=== PATIENT | female | born 1995 | race Hispanic/Latino ===

== ENCOUNTER 2018-02-15 21:29 | Emergency (ER) | payer OTHER, MEDICAID, SELFPAY ==
[2018-02-15 21:37] VITALS: BP 103/70; PULSE 59; RESP 16; TEMP 36.5; O2SAT 98; BMI 29.2
--- NOTE | 2018-02-15 22:21 | PC.NURSE ---
Pt reports R flank pain onset last night with chills today. -n/v or fever. Similar pain in the past with kidney infection. Pt reports odorous urine, burning but no freq or vag d/c or open sores to perineum/labia.
[2018-02-15 23:04] LABS: Add Manual Diff / Slide Review NO; Basophils Percent Auto 0.9 % (0-2); Eosinophils Percent Auto 1.8 % (2-4); Hematocrit 36.6 % (36-46); Hemoglobin 12.3 g/dL (12.0-16.0); Lymphocytes Percent Auto 46.1 % (25-40); Mean Corpuscular HGB Conc 33.7 % (30-36); Mean Corpuscular Hemoglobin 30.1 PG (26-34); Mean Corpuscular Volume 89.4 fL (80-100); Monocytes Percent Auto 8.9 % (3-14); Neutrophils Absolute Auto 3200 /uL (3000-5900); Neutrophils Percent Auto 42.3 % (50-75); Platelet Count 188 X10^3/uL (150-400); Red Blood Cell Count 4.09 X10^6/uL (4.0-5.2); Red Cell Distribution Width 13.5 % (11.6-14.8); White Blood Cell Count 7.5 X10^3/uL (4.5-11.0)
[2018-02-15 23:14] LABS: Alanine Aminotransferase 20 IU/L (9-52); Albumin 4.2 g/dL (3.5-5.0); Albumin Globulin Ratio 1.4 (1.0-2.8); Alkaline Phosphatase 54 U/L (38-126); Aspartate Aminotransferase 16 IU/L (14-36); BUN Creatinine Ratio 18.8 (6-22); Bilirubin Total 0.2 mg/dL (0.2-1.3); Blood Urea Nitrogen 15 mg/dL (7-17); Carbon Dioxide 23 mmol/L (22-32); Chloride 107 mmol/L (98-107); Estimated Glomerular Filt Rate > 60.0 mL/min (>60); Glucose 109 mg/dL (70-100); HEMOLYSIS < 15 (0-50); Lipase 142 U/L (23-300); Potassium 4.2 mmol/L (3.4-5.1); Sodium 143 mmol/L (137-145); Total Protein 7.2 g/dL (6.3-8.2)
--- NOTE | 2018-02-15 23:43 | PC.NURSE ---
stand by assisted provided for MD during pelvic exam. Pt tolerated well and obtained two vaginal cultures and sent out to lab.
--- NOTE | 2018-02-16 01:01 | ED_ITS ---
HPI - Female Genitourinary General Chief complaint: Urogenital-Female Stated complaint: RT SIDE BACK PAIN History of Present Illness HPI Narrative: HPI 22-year-old female presents for evaluation of 2 weeks of poorly characterized right flank pain that is nonradiating dull in nature, pain appears to be exacerbated by walking, patient also has mild right lower quadrant discomfort that is nonradiating, has been present for ~1 week, notes scant whitish vaginal discharge, mild vaginal discover, the concern for a mild bump by her mons pubis that is been present for an indeterminate period of time. Patient reports that she saw a a provider, possibly Sandie Granda, who prescribed unknown antibiotic for approximately 10 days duration that she took without improvement in symptoms. Patient denies fevers, chills, continues to take p.o. well, pass flatus and stool baseline, denies dysuria or urinary frequency. M/S/F/SocHx notable for: please see HPI; remainder reviewed with patient and in chart. ROS: Negative constitutional, eye, cardiovascular, pulmonary, GI, , MSK, skin , neurologic, psychiatric, endocrine unless noted in the HPI. Exam Gen: Pleasant, non-toxic appearing, resting comfortably. HEENT: NC, AT, PEERL, EOMI. Resp: Clear to auscultation bilaterally, normal work of breathing, no accessory muscle usage. Card: Regular rate and rhythm with no murmurs, rubs, or gallops, extremities warm and well perfused. GI: Non-tender to palpation throughout all quadrants, no focal tenderness at McBurney's point, negative Gonzalez's sign, non-distended, no rebound or guarding. : mild suprapubic tenderness to palpation. No CVA tenderness percussion bilaterally. Chaperoned pelvic exam with visually normal female external genitalia, and the men mons pubis there is a small area of mild induration/ swelling at the base of a hair. No surrounding erythema, fluctuance, crepitus, no discharge.. Vaginal canal without lesions or excoriations. Scant physiologic discharge appreciated, no bleeding or purulence. No masses or on bimanual exam of the fundus or left or right adnexa, however there is diffuse tenderness to palpation.No CMT. MSK: No visible deformities, strength and tone without visually appreciable deficit. Skin: Normal color with no visible lesions. Neuro: AO x 3, no facial asymmetry, vision and hearing WNL. Psych: Mood and affect appropriate. Labs / Imaging: WBC 7.5, HB 12.3, sodium 143, potassium 4.2, total bilirubin 0.2, AST 60, ALT 20 , ALT 54, lipase 142. UA - negative nitrate, negative leukocyte esterase. Negative hCG Wet mount - occasional clue cells, occasional yeast, no trichomonas GC Pending. MDM Previous chart, nursing note, labs, imaging, and vitals reviewed. A: 22-year-old female presents for evaluation of 2 weeks of poorly characterized right flank pain that is nonradiating dull in nature, pain appears to be exacerbated by walking, patient also has mild right lower quadrant discomfort that is nonradiating, has been present for ~1 week, notes scant whitish vaginal discharge, mild vaginal discover, the concern for a mild bump by her mons pubis that is been present for an indeterminate period of time. DDx: UTI, pyelonephritis, Jaya Sheldon Aram syndrome, lobar nephronia, ureterolithiasis, renal abscess, biliary disease (cholecystitis, cholelithiasis , choledocholithiasis, cholangitis), pancreatitis, , ectopic , PID, cervicitis, bacterial vaginosis, acute appendicitis. Evaluation: UA without clear evidence of UTI or UTI, history, exam, labs without clear evidence of ureterolithiasis, given the overall symptom constellation and history strongly doubt a lobar nephronia or renal abscess, examine labs without evidence of biliary disease, no evidence of pancreatitis, negative test, pelvic exam concerning for PID, wet mount with bacterial vaginosis. Evaluation of any possible Fizt Sheldon Aram syndrome deferred to the patient's PCP is appropriate. As GC is pending patient given ceftriaxone 250 mg IM, discharge with RX for doxycycline 100 mg b.i.d. and metronidazole 500 mg b.i.d.; both for 14 days. Patient instructed to follow up PCP for further care. Impression: BV, ?PID (please reference below for remainder of encounter information) Related Data Allergies Allergy/AdvReac Type Severity Reaction Status Date / Time No Known Drug Allergies Allergy Verified 02/15/18 21:37 [facility] Social History Smoking Status: Never smoker Exam Initial Vital Signs Initial Vital Signs: Vital Signs Temperature 97.7 F 02/15/18 21:37 Pulse Rate 59 L 02/15/18 21:37 Respiratory Rate 16 02/15/18 21:37 Blood Pressure 103/70 02/15/18 21:37 Pulse Oximetry 98 02/15/18 21:37 Course Orders Ordered: ED Orders 02/15/18 22:50 Complete Blood Count AUTO DIFF Stat Comprehensive Metabolic Panel Stat Lipase Stat 02/15/18 23:40 Wet Prep Tric BV Margaret Stat 02/16/18 00:01 Chlamydia/Gonorrhea RNA (SWAB) Stat Ceftriaxone Sodium (Rocephin) 250 mg IM NOW ONE Stop: 02/16/18 01:01 Doxycycline Hyclate (Vibramycin) 100 mg PO NOW ONE Stop: 02/16/18 01:01 Metronidazole (Metronidazole) 500 mg PO NOW ONE Stop: 02/16/18 01:01 Vital Signs - 8 hr 02/15/18 21:37 Temperature 97.7 F Pulse Rate 59 L Respiratory Rate 16 Blood Pressure 103/70 Pulse Oximetry 98 MDM - Female Genitourinary Lab Data Result diagrams: 02/15/18 22:50 02/15/18 22:50 Lab Results 02/15/18 02/15/18 Range/Units 22:50 22:50 WBC 7.5 (4.5-11.0) X10^3/uL RBC 4.09 (4.0-5.2) X10^6/uL Hgb 12.3 (12.0-16.0) g/dL Hct 36.6 (36-46) % MCV 89.4 (80-100) fL MCH 30.1 (26-34) PG MCHC 33.7 (30-36) % RDW 13.5 (11.6-14.8) % Plt Count 188 (150-400) X10^3/uL Neut % (Auto) 42.3 L (50-75) % Lymph % (Auto) 46.1 H (25-40) % Weld % (Auto) 8.9 (3-14) % Eos % (Auto) 1.8 L (2-4) % Baso % (Auto) 0.9 (0-2) % Neut # (Auto) 3200 (9994-5247) /uL Sodium 143 (137-145) mmol/L Potassium 4.2 (3.4-5.1) mmol/L Chloride 107 (98-107) mmol/L Carbon Dioxide 23 (22-32) mmol/L BUN 15 (7-17) mg/dL Creatinine 0.80 (0.52-1.04) mg/dL Estimated GFR > 60.0 (>60) mL/min BUN/Creatinine Ratio 18.8 (6-22) Glucose 109 H (70-100) mg/dL Calcium 9.0 (8.4-10.2) mg/dL Total Bilirubin 0.2 (0.2-1.3) mg/dL AST 16 (14-36) IU/L ALT 20 (9-52) IU/L Alkaline Phosphatase 54 (38-126) U/L Total Protein 7.2 (6.3-8.2) g/dL Albumin 4.2 (3.5-5.0) g/dL Globulin 3.0 (1.7-4.1) g/dL Albumin/Globulin Ratio 1.4 (1.0-2.8) Lipase 142 (23-300) U/L
[2018-02-16] MEDS: cefTRIAXone 500 MG VIAL 250 MG IM (01:37)
[2018-02-16] MEDS: metroNIDAZOLE 250 MG TABLET 500 MG PO (01:40)
[2018-02-16] MEDS: DOXYCYCLINE HYCLATE 100 MG TABLET PO (01:41)
[2018-02-16 01:55] VITALS: BP 111/70; PULSE 63; RESP 16; O2SAT 100
== END 2018-02-16 01:40 | disposition home or self-care (01) ==
PROVIDERS: Emergency Provider Emergency Medicine
DX: N76.0 Acute vaginitis (principal); B96.89 Other specified bacterial agents as the cause of diseases classified elsewhere
CPT/HCPCS: 36415; 80053; 81003; 81025; 83690; 85025; 87081; 87210; 87491; 87591; 96372; 99283; J0696